=== PATIENT | female | born 1945 | race Caucasian/White ===

== ENCOUNTER 2016-11-17 21:59 | Emergency (ER) | payer BC, OTHER ==
[~2016-11-17] VITALS: Ht 162.6 cm; Wt 84.1 kg
[~2016-11-17 21:59] MED LIST: CLX20 PO; CMD5 PO; DVN80 PO; EZET10TA63 PO; OXYC-57 PO; OXYSR10 PO; SIMV20TA2 PO; ZNTT/150 PO
[2016-11-17 22:03] VITALS: TEMP 36.4; Ht 162.6 cm; Wt 84.1 kg
[2016-11-17] MEDS ORDERED: ACETAMINOPHEN 500 MG TAB PO STA (22:17)
[2016-11-17] MEDS ORDERED: LSN5 PO (22:39)
[2016-11-17] MEDS ORDERED: ASPI81TA28 PO (22:39)
[2016-11-17] MEDS ORDERED: CITA40TA4 PO (22:39)
[2016-11-17] MEDS ORDERED: [UNRECOGNIZED DRUG - REMARK] PO (22:45)
--- NOTE | 2016-11-17 23:00 | DIAGNOSTIC IMAGING REPORT ---
LEFT SHOULDER MIN 2 VIEWS ROUTINE CLINICAL HISTORY: Left shoulder pain status post trauma COMPARISON: None. DISCUSSION: There is age-indeterminate fracture involving the inferior rim of the scapular glenoid. There is no dislocation. No fractures the proximal humerus are visualized. IMPRESSION: Age-indeterminate avulsion fracture involving the inferior rim of the scapular glenoid. Electronically signed by: Christian Parisi M.D. 11/17/2016 10:58 PM Dictated Date/Time: 11/17/2016 10:57 PM
--- NOTE | 2016-11-17 23:01 | DIAGNOSTIC IMAGING REPORT ---
LEFT KNEE 3 VIEWS CLINICAL HISTORY: Left knee pain status post trauma COMPARISON: None DISCUSSION: No fractures or dislocations are visualized. There are minor degenerative changes. IMPRESSION: No fractures or dislocations identified. Electronically signed by: Christian Parisi M.D. 11/17/2016 11:00 PM Dictated Date/Time: 11/17/2016 10:59 PM
--- NOTE | 2016-11-17 23:20 | EMERGENCY ROOM VISIT NOTE ---
History First contact with patient: 22:08 Chief Complaint: SHOULDER PAIN Stated Complaint: FALL, LANDED ON LEFT SHOULDER, LEFT KNEE/ANKLE History of Present Illness The patient is a 71 year old female who presents to the Emergency Room with complaints of mechanical fall today when she tripped over the step landing on her left side. Patient complains of left shoulder, left knee and left ankle pain. Patient describes the pain as aching, ranging in severity 4-10. Nothing makes it better or worse. Patient denies head injury, neck pain, back pain, chest pain, dyspnea, numbness, tingling. No prior fractures to this area. Patient was able to get up from a fall and ambulate. She is not on blood thinners. Review of Systems See HPI for pertinent positives & negatives. A total of 10 systems reviewed and were otherwise negative. Past Medical/Surgical History Hypertension, hyperlipidemia, GERD, knee surgery Social History Smoking Status: Never Smoker Smokeless Tobacco Use: No Drug Use: none Marital Status: Housing Status: lives with family Current/Historical Medications Scheduled Aspirin (Aspirin Ec), 81 MG PO DAILY Citalopram (Citalopram Hydrobromide), 1 TAB PO DAILY Lisinopril (Lisinopril), 5 MG PO DAILY Simvastatin (Zocor), 20 MG PO QPM [Unknown Narcotic], 150 MG PO DAILY Allergies Coded Allergies: Cetirizine (Verified Allergy, Severe, HIVES, 11/17/16) Penicillins (Verified Allergy, Severe, HIVES, 11/17/16) Physical Exam Vital Signs Date Time Temp Pulse Resp B/P Pulse Ox O2 Delivery O2 Flow Rate FiO2 11/17/16 22:03 36.4 82 16 154/83 98 Room Air Physical Exam PHYSICAL EXAM: VITALS: Vitals are noted on the nurse's note and reviewed by myself. Vital signs stable. GENERAL: Pleasant female, in no acute distress, nondiaphoretic, well-developed well-nourished. SKIN: The skin was without obvious lacerations or abrasions. Capillary reflex less than 2 seconds. HEAD: Normocephalic atraumatic. EARS: External auditory canals clear, tympanic membranes pearly doyle without erythema or effusion bilaterally. No hemotympanums. No parks sign. No mastoid tenderness. EYES: Pupils equal round and reactive to light and accommodation. Conjunctivae without injection, sclerae without icterus. Extraocular movements intact. NOSE: Patent, turbinates without inflammation or discharge. No sinus tenderness. No septal hematoma or bleeding. FACE: No facial bone tenderness. Full range of motion of the jaw without tenderness. MOUTH: Mucous membranes moist. Pharynx without erythema or exudate. Uvula midline. Airway patent. Tongue does not deviate. NECK: Supple without nuchal rigidity. Cervical spine is nontender. Full range of motion of the neck without tenderness. No JVD. HEART: Regular rate and rhythm LUNGS: Clear to auscultation bilaterally without wheezes, rales or rhonchi. No dullness to percussion. No retractions or accessory muscle use. No chest wall tenderness. ABDOMEN: Positive bowel sounds x 4. Normal tympanic percussion. Soft, nontender, without masses or organomegaly. No guarding or rebound tenderness. MUSCULOSKELETAL: No tenderness of the thoracic or lumbar spine. No tenderness with pelvic rocking. Left shoulder tender to palpation increased pain with range of motion. Left knee minimally tender to palpation with increased pain with range of motion. Left ankle minimally tender to palpation over lateral malleolus with increased pain with range of motion. Full range of motion without tenderness to palpation in all other extremities. Normal gait. Strength 5/5 throughout. Peripheral pulses 2+. NEURO: Patient was alert and oriented to person place and time. Normal Mini- Mental status exam. Normal sensation to light and sharp touch. Negative Romberg and pronator drift. Cerebellar function intact. No focal neurological deficits. Medical Decision & Procedures Medications Administered Medications (Trade) Dose Ordered Sig/[place] Route Start Time Stop Time Status Last Admin Dose Admin Acetaminophen (Tylenol Tab) 1,000 mg NOW STAT PO 11/17/16 22:17 11/17/16 22:19 DC 11/17/16 22:26 1,000 MG ED Course Prior records/ancillary studies reviewed. Triage Nursing notes reviewed. Additional history obtained from family The patient's history was concerning for left shoulder, ankle, knee pain s/p fall Differential diagnosis: Etiologies such as sprain, strain, dislocation, contusion, musculoskeletal, fracture, as well as others were entertained. Physical findings: As above. No focal neurologic findings noted. ER treatment provided: Tylenol, sling On reassessment the patient felt better. Diagnostics interpreted by me: Imaging studies: LEFT KNEE 3 VIEWS CLINICAL HISTORY: Left knee pain status post trauma COMPARISON: None DISCUSSION: No fractures or dislocations are visualized. There are minor degenerative changes. IMPRESSION: No fractures or dislocations identified. Electronically signed by: Christian Parisi M.D. Ankle x-ray no acute fracture, dislocation per my interpretation LEFT SHOULDER MIN 2 VIEWS ROUTINE CLINICAL HISTORY: Left shoulder pain status post trauma COMPARISON: None. DISCUSSION: There is age-indeterminate fracture involving the inferior rim of the scapular glenoid. There is no dislocation. No fractures the proximal humerus are visualized. IMPRESSION: Age-indeterminate avulsion fracture involving the inferior rim of the scapular glenoid. Electronically signed by: Christian Parisi M.D. This appears to be consistent with fall with shoulder injury and knee and ankle sprain. Patient was placed in a sling. Neurovascular status is rechecked after placement and is intact. Her x-rays were put on a disc. She is advised to follow-up with orthopedics when she returns home tomorrow. She is advised to return to the ER immediately for severe pain, numbness, tingling, worsening signs or symptoms or as needed. Patient was neurovascularly and neurologically intact. She is well-appearing. No other injuries were noted. She ambulated out of the ER without difficulties.By the evaluation outlined above emergent etiologies such as dislocation, as well as others were deemed relatively unlikely. The pt informed about the findings as listed above. All questions were answered and pleased with the treatment. Return instructions were outlined and the patient was discharged in stable condition. Referral: The patient was referred back to ortho and primary care physician for follow- up in 2 to 3 days for a recheck of the current condition. Case reviewed with my attending Medical Decision As above Impression Primary Impression: Shoulder fracture, left Additional Impressions: Fall Injury of knee Ankle injury Departure Information Dispostion Home / Self-Care Condition GOOD Patient Instructions [facility] Additional Instructions Ibuprofen(Motrin, Advil) may be used for fever or pain. Use 600mg every six hours as needed. Take with food. Avoid using more than 2400mg in a 24 hour period. Do not use 2400mg per day for more than three consecutive days without physician direction. Prolonged inappropriate use can lead to stomach upset or ulcers. This medication can be taken if you need to drive, work, or perform activities which may be dangerous when taking narcotic pain medication. (AND/OR) Acetaminophen(Tylenol) may be used for fever or pain. Use 1000mg every six hours as needed. Avoid using more than 3000mg in a 24 hour period. This medication can be taken if you need to drive, work, or perform activities which may be dangerous when taking narcotic pain medication. Ice compresses for 20 minutes at a time four times daily for 2-3 days. Use the sling as instructed. Remove your arm from the sling 4-6 times a day and move all the joints around to keep them loose. Rest and elevate your injury. Continue current medications. Return to the ER immediately for any numbness, tingling, severe pain, extreme swelling in the extremity or as needed. Call Orthopedics tomorrow to arrange follow up for your injury. Problem Qualifiers Primary Impression: Shoulder fracture, left Encounter type: initial encounter Fracture type: closed Qualified Codes: S42.92XA - Fracture of left shoulder girdle, part unspecified, initial encounter for closed fracture
--- NOTE | 2016-11-17 23:38 | EMERGENCY ROOM VISIT NOTE ---
ED Visit Note First contact with patient: 22:08 Staff note: I have reviewed the Patients chart and have discussed this case with my PA. I generally agree with the ED note and findings.
[2016-11-17 23:44] VITALS: BP 150/84; PULSE 67; O2SAT 95
--- NOTE | 2016-11-18 06:23 | DIAGNOSTIC IMAGING REPORT ---
LEFT ANKLE MIN 3 VIEWS ROUTINE CLINICAL HISTORY: fall, left trauma. Pain. COMPARISON: None. DISCUSSION: No acute bony abnormality. Ankle mortise is aligned anatomically. Small heel spur. Small osteochondral defect medial talar dome. There is no evidence for soft tissue swelling. IMPRESSION: No acute bony abnormality. Small osteochondral defect medial talar dome. Small heel spur. Electronically signed by: Johnathan Jean-Baptiste M.D. 11/18/2016 6:22 AM Dictated Date/Time: 11/18/2016 6:21 AM
== END 2016-11-17 23:44 | disposition home or self-care (01) ==
LOC: C.EDB 22:01 → C.EDA 23:44
DX: S42.92XA Fracture of left shoulder girdle, part unspecified, initial encounter for closed fracture (principal); M25.512 Pain in left shoulder; M25.572 Pain in left ankle and joints of left foot; M25.562 Pain in left knee; W18.09XA Striking against other object with subsequent fall, initial encounter; Y92.89 Other specified places as the place of occurrence of the external cause; I10 Essential (primary) hypertension; E78.5 Hyperlipidemia, unspecified; K21.9 Gastro-esophageal reflux disease without esophagitis